=== PATIENT | female | born 1990 | race Caucasian/White ===

== ENCOUNTER 2024-07-30 00:23 | Emergency (ER) | payer OTHER ==
[~2024-07-30] VITALS: Ht 165.1 cm; Wt 72.6 kg
[2024-07-30] MEDS ORDERED: RABIES VACCINE (PCEC)/PF 1 EA KIT IM ONE (01:02)
[2024-07-30] MEDS: RABIES IMMUNE GLOBULIN/PF 150 UNIT/ML VIAL IM ONE (01:04)
[2024-07-30] MEDS: RABIES VACCINE (PCEC)/PF 1 EA KIT IM ONE (01:10)
[2024-07-30] MEDS ORDERED: AMOX-430 PO (01:46)
[2024-07-30] MEDS ORDERED: ACETAMINOPHEN ES 500 MG TABLET ONE (01:57)
[2024-07-30] MEDS: ACETAMINOPHEN ES 500 MG TABLET PO ONE (02:00)
[2024-07-30 03:05] VITALS: BP 134/88; TEMP 98.5; O2SAT 95
== END 2024-07-30 03:07 | disposition home or self-care (01) ==
LOC: ER 00:27
DX: S81.811A Laceration without foreign body, right lower leg, initial encounter (principal); Z20.3 Contact with and (suspected) exposure to rabies; W54.0XXA Bitten by dog, initial encounter; Y93.89 Activity, other specified; Y92.89 Other specified places as the place of occurrence of the external cause; Y99.8 Other external cause status
CPT/HCPCS: 12004; 90375; 90471; 90675; 96372; 99284; J7030